=== PATIENT | male | born 1995 | race African-American/Black ===

== ENCOUNTER 2019-03-31 20:38 | Emergency (ER) | payer BC ==
[2019-03-31] MEDS ORDERED: traMADol HCl 50 MG TAB ONE (22:49)
== END 2019-03-31 23:13 | disposition home or self-care (01) ==
LOC: ERS 20:38
DX: R51 Headache (principal); V89.2XXA Person injured in unspecified motor-vehicle accident, traffic, initial encounter
CPT/HCPCS: 99283